=== PATIENT | female | born 1945 | race African-American/Black ===

== ENCOUNTER 2016-09-01 12:58 | Emergency (ER) | payer MEDICARE, BC ==
[~2016-09-01] VITALS: Ht 179.1 cm; Wt 87.4 kg
[~2016-09-01 12:58] MED LIST: BENI20TA26 PO; CIPR500T4 PO; FLAG500T PO; PANT40IN3 PO; SYNT75TA PO
[2016-09-01 13:03] VITALS: BP 140/85; PULSE 94; RESP 20; TEMP 98.5; O2SAT 99
[2016-09-01] MEDS ORDERED: OMEP20TA PO (13:20)
[2016-09-01] MEDS ORDERED: SYNT25TA PO (13:20)
[2016-09-01] MEDS ORDERED: BENI20TA5 PO (13:20)
[2016-09-01] MEDS ORDERED: SODIUM CHLOR 0.9% 1000 ML INJ 1,000 ML IV SCH (13:23)
[2016-09-01] MEDS ORDERED: ONDANSETRON HCL 4 MG/2 ML VIAL IVP ONE (13:30)
[2016-09-01] MEDS ORDERED: SODIUM CHLORIDE 0.9% FLUSH 10 ML FLUSH IV FLUSH PRN (13:30)
[2016-09-01 13:36] VITALS: PULSE 77; RESP 16; O2SAT 100
[2016-09-01 13:47] LABS: AUTOMATED NEUTROPHIL # 8.9 TH/MM3 (1.8-7.7); BASOPHIL % 0.2 % (0.0-2.0); EOSINOPHIL # 0.1 TH/MM3 (0-0.4); EOSINOPHIL % 0.7 % (0.0-4.0); HEMATOCRIT 46.9 % (35.0-46.0); LYMPH % 3.3 % (9.0-44.0); LYMPHOCYTE # 0.3 TH/MM3 (1.0-4.8); MEAN CELL VOLUME 84.1 FL (80.0-100.0); MEAN CORPUSCULAR HEMOGLOBIN 27.2 PG (27.0-34.0); MEAN CORPUSCULAR HGB CONC 32.4 % (32.0-36.0); MONO % 4.2 % (0.0-8.0); NEUT % 91.6 % (16.0-70.0); PLATELET COUNT 155 TH/MM3 (150-450); RED BLOOD COUNT 5.58 MIL/MM3 (4.00-5.30); RED CELL DISTRIBUTION WIDTH 13.8 % (11.6-17.2); WHITE BLOOD COUNT 9.7 TH/MM3 (4.0-11.0)
[2016-09-01 13:48] LABS: HEMO FLAGS DIFF FINAL
[2016-09-01 13:50] LABS: CHLORIDE 108 MEQ/L (98-107); POTASSIUM 3.7 MEQ/L (3.5-5.1); SODIUM (NA) 142 MEQ/L (136-145)
[2016-09-01 13:54] LABS: ANION GAP 8 MEQ/L (5-15); BICARBONATE 25.8 MEQ/L (21.0-32.0); BLOOD UREA NITROGEN 13 MG/DL (7-18)
[2016-09-01 13:56] LABS: ALT (GPT) 28 U/L (10-53); AST (GOT) 18 U/L (15-37)
[2016-09-01 13:57] LABS: GLOMERULAR FILTRATION RATE 60 ML/MIN (>89)
[2016-09-01 13:59] LABS: ALKALINE PHOSPHATASE 113 U/L (45-117)
--- NOTE | 2016-09-01 13:59 | PD ---
HPI Chief Complaint: GI Complaint Time Seen by Provider: 13:19 Travel History International Travel<30 days: No Contact w/Intl Traveler<30days: No Traveled to known affect area: No History of Present Illness HPI Patient is a pleasant 70-year-old female who presents the emergency department with complaint of abdominal cramping, nausea vomiting and diarrhea. Patient states that she was running errands yesterday and left some food in the car that contained shrimp for a prolonged period of time in the warm environment. She then ate this. She felt asymptomatic yesterday but woke up this morning with mild diffuse crampy abdominal pain. This is followed by a strong urge to defecate. She notes diarrhea, frankly watery but no blood. After which, the cramping pain is improved. She has some associated nausea and vomiting. No hematemesis. No fevers or chills. She denies any recent travel. History of C- section and hysterectomy but no other abdominal surgeries. PFSH Past Medical History Arthritis: No Asthma: No Autoimmune Disease: No Anxiety: No Depression: No Heart Rhythm Problems: No Cancer: No Cardiovascular Problems: Yes High Cholesterol: Yes Chemotherapy: No Chest Pain: Yes Congestive Heart Failure: No COPD: No Cerebrovascular Accident: No Diabetes: No Diminished Hearing: No Endocrine: No Gastrointestinal Disorders: Yes (CONSTIPATION) GERD: No Genitourinary: Yes (UTI'S) Headaches: No Hiatal Hernia: No Heparin Induced Thrombocytopen: No Hypertension: Yes Immune Disorder: No Implanted Vascular Access Dvce: No Kidney Stones: No Musculoskeletal: Yes Neurologic: No Psychiatric: No Reproductive: No Respiratory: Yes Migraines: No Radiation Therapy: No Renal Failure: No Seizures: No Sickle Cell Disease: No Sleep Apnea: No Thyroid Disease: No Ulcer: No Tetanus Vaccination: < 5 Years ?: Not Menopausal: Yes Dilation and Curettage (D&C): Yes Past Surgical History Abdominal Surgery: No AICD: No Arteriovenous Shunt: No Cardiac Surgery: No Section: Yes Ear Surgery: No Endocrine Surgery: No Eye Surgery: No Genitourinary Surgery: No Gynecologic Surgery: Yes (HYSTERECTOMY, ) Hysterectomy: Yes Insulin Pump: No Joint Replacement: No Neurologic Surgery: No Oral Surgery: No Pacemaker: No Thoracic Surgery: No Tonsillectomy: Yes Social History Alcohol Use: Yes Tobacco Use: No Substance Use: No Allergies-Medications (Allergen,Severity, Reaction): Coded Allergies: Flu Vaccine (Verified Allergy, Severe, 09/01/16) PT ADVISED THAT SHE CANNOT RECALL THE REACTION, BUT THAT IT WAS "SEVERE." Codeine (Verified Allergy, Unknown, Itching, 09/01/16) Sulfa (Verified Allergy, Unknown, Nausea/Vomiting, 09/01/16) Reported Meds & Prescriptions Reported Meds & Active Scripts Active Zofran Odt (Ondansetron Odt) 8 Mg Tab 8 Mg SL Q8H PRN Reported Omeprazole 20 Mg Tab 20 Mg PO DAILY Synthroid (Levothyroxine Sodium) 25 Mcg Tab 25 Mcg PO DAILY Benicar (Olmesartan) 20 Mg Tab 20 Mg PO DAILY Review of Systems Except as stated in HPI: all other systems reviewed are Neg Physical Exam Narrative GENERAL: Pleasant well-appearing jovial female in no acute distress SKIN: Focused skin assessment warm/dry. HEAD: Normocephalic. EYES: No scleral icterus. No injection or drainage. ENT: Mucous membranes pink and moist. NECK: Supple CARDIOVASCULAR: Regular rate and rhythm. RESPIRATORY: No accessory muscle use. GASTROINTESTINAL: Abdomen soft, non-tender, nondistended. MUSCULOSKELETAL: No obvious deformities. No edema. NEUROLOGICAL: Awake and alert. Normal speech. PSYCHIATRIC: Appropriate mood and affect; insight and judgment normal. Data Data Last Documented VS Vital Signs Date Time Temp Pulse Resp B/P Pulse Ox O2 Delivery O2 Flow Rate FiO2 09/01/16 13:36 77 16 100 Room Air 09/01/16 13:03 98.5 140/85 Orders Complete Blood Count With Diff (09/01/16 13:23) Comprehensive Metabolic Panel (09/01/16 13:23) Lipase (09/01/16 13:23) Iv Access Insert/Monitor (09/01/16 13:23) Oximetry (09/01/16 13:23) Ondansetron Inj (Zofran Inj) (09/01/16 13:30) Sodium Chlor 0.9% 1000 Ml Inj (Ns 1000 M (09/01/16 13:23) Sodium Chloride 0.9% Flush (Ns Flush) (09/01/16 13:30) Labs Laboratory Tests Test 09/01/16 13:24 White Blood Count 9.7 TH/MM3 Red Blood Count 5.58 MIL/MM3 Hemoglobin 15.2 GM/DL Hematocrit 46.9 % Mean Corpuscular Volume 84.1 FL Mean Corpuscular Hemoglobin 27.2 PG Mean Corpuscular Hemoglobin 32.4 % Concent Red Cell Distribution Width 13.8 % Platelet Count 155 TH/MM3 Mean Platelet Volume 12.0 FL Neutrophils (%) (Auto) 91.6 % Lymphocytes (%) (Auto) 3.3 % Monocytes (%) (Auto) 4.2 % Eosinophils (%) (Auto) 0.7 % Basophils (%) (Auto) 0.2 % Neutrophils # (Auto) 8.9 TH/MM3 Lymphocytes # (Auto) 0.3 TH/MM3 Monocytes # (Auto) 0.4 TH/MM3 Eosinophils # (Auto) 0.1 TH/MM3 Basophils # (Auto) 0.0 TH/MM3 CBC Comment DIFF FINAL Differential Comment Sodium Level 142 MEQ/L Potassium Level 3.7 MEQ/L Chloride Level 108 MEQ/L Carbon Dioxide Level 25.8 MEQ/L Anion Gap 8 MEQ/L Blood Urea Nitrogen 13 MG/DL Creatinine 1.10 MG/DL Estimat Glomerular Filtration 60 ML/MIN Rate Random Glucose 119 MG/DL Calcium Level 9.4 MG/DL Total Bilirubin 1.0 MG/DL Aspartate Amino Transf 18 U/L (AST/SGOT) Alanine Aminotransferase 28 U/L (ALT/SGPT) Alkaline Phosphatase 113 U/L Total Protein 7.4 GM/DL Albumin 3.7 GM/DL Lipase 170 U/L [facility] Medical Decision Making Medical Screen Exam Complete: Yes Emergency Medical Condition: Yes Medical Record Reviewed: Yes Differential Diagnosis 70-year-old female here with complaint of one day of crampy abdominal discomfort followed by nausea vomiting and diarrhea after eating food/ramp that was left out in the car yesterday. Differential includes food poisoning, gastroenteritis, dehydration, left eyelid abnormality. Less likely peritoneal pathology given her overall benign abdominal examination. Narrative Course Patient placed on monitor, IV established and blood obtained. Given 1 L normal saline bolus, 4 mg Zofran. CBC, CMP, lipase notable for normal WBC of 9.7 but left shift with 91.6% neutrophils. No bands. Patient was able to tolerate oral challenge and will be discharged home with antiemetics for symptom management. Diagnosis Primary Impression: Gastroenteritis Additional Impression: Food poisoning Qualified Code: T62.91XA - Food poisoning, accidental or unintentional, initial encounter Referrals: Primary Care Physician as needed Additional Instructions: Zofran as needed for nausea, vomiting. Remember to drink plenty of electrolyte- containing fluids. Med/Other Pt SpecificInfo: Prescription(s) given Scripts Ondansetron Odt (Zofran Odt)8 Mg Tab8 Mg SL Q8H PRN (NAUSEA OR VOMITING) #10 TAB Ref 0 Prov:Selam Koenig MD 09/01/16 Disposition: 01 DISCHARGE HOME Condition: Stable Selam Koenig MD Sep 01, 2016 13:59
[2016-09-01] MEDS ORDERED: ZOFR8TAB4 SL (14:06)
[2016-09-01 14:32] VITALS: BP 141/68
== END 2016-09-01 15:05 | disposition home or self-care (01) ==
LOC: PHED 12:58
DX: K52.9 Noninfective gastroenteritis and colitis, unspecified (principal); T62.91XA Toxic effect of unspecified noxious substance eaten as food, accidental (unintentional), initial encounter; I10 Essential (primary) hypertension; E78.00 Pure hypercholesterolemia, unspecified; Z86.79 Personal history of other diseases of the circulatory system; Z87.19 Personal history of other diseases of the digestive system; Z87.448 Personal history of other diseases of urinary system; Z87.39 Personal history of other diseases of the musculoskeletal system and connective tissue
CPT/HCPCS: 80053; 83690; 85025; 96361; 96374; 99284; J2405; J7030